=== PATIENT | male | born 1965 | race Caucasian/White ===

== ENCOUNTER → 2024-12-23 | Outpatient (REF) | payer BC ==
[~2024-12-23] MED LIST: CLARITIN PO; LOTENSIN PO; NORCO PO; ZOCOR PO
== END ==
LOC: WCC 12:16
PROVIDERS: ATTEND Podiatrist Foot & Ankle Surgery
DX: L97.323 Non-pressure chronic ulcer of left ankle with necrosis of muscle (principal); R60.0 Localized edema

== ENCOUNTER → 2024-12-27 | Outpatient (REF) | payer BC | LOC: WCC 15:19 | PROVIDERS: ATTEND Podiatrist Foot & Ankle Surgery | DX: L97.323 Non-pressure chronic ulcer of left ankle with necrosis of muscle (principal); R60.0 Localized edema ==

== ENCOUNTER → 2024-12-30 | Outpatient (REF) | payer BC | LOC: WCC 13:15 | PROVIDERS: ATTEND Podiatrist Foot & Ankle Surgery | DX: R60.0 Localized edema (principal) ==

== ENCOUNTER → 2025-01-03 | Outpatient (REF) | payer BC ==
[~2025-01-03] MED LIST changes: +COLLAGENASE OINTMENT 30 GM TUBE ONE; +MINERAL OIL/PETROLAT/GLYCERI 6OZ BTL ONE
== END ==
LOC: WCC 11:21
PROVIDERS: ATTEND Podiatrist Foot & Ankle Surgery
DX: L97.323 Non-pressure chronic ulcer of left ankle with necrosis of muscle (principal)
CPT/HCPCS: 87071; 87075; 87186; 87205

== ENCOUNTER → 2025-01-06 | Outpatient (REF) | payer BC ==
[~2025-01-06] MED LIST changes: -COLLAGENASE OINTMENT 30 GM TUBE ONE; -MINERAL OIL/PETROLAT/GLYCERI 6OZ BTL ONE
[2025-01-06 15:21] LABS: BASOPHILS # (AUTO) 0.1 (0.0-0.1); BASOPHILS % 0.7 % (0.0-1.0); EOSINOPHILS # (AUTO) 0.1 (0.0-0.4); EOSINOPHILS % 1.9 % (0.0-6.0); HEMATOCRIT 33.5 % (38.2-49.6); HEMOGLOBIN 10.4 g/dL (14.0-18.0); LYMPHOCYTES # (AUTO) 1.7 (1.0-3.2); LYMPHOCYTES % 24.1 % (18.0-39.1); MEAN CORPUSCULAR HEMOGLOBIN 27.6 pg (28-32); MEAN CORPUSCULAR VOLUME 88.9 fL (81-99); MONOCYTES # (AUTO) 0.5 (0.2-0.8); MONOCYTES % 6.4 % (4.4-11.3); NEUTROPHILS # (AUTO) 4.8 (2.1-6.9); NEUTROPHILS % 66.6 % (38.7-80.0); PLATELET COUNT 238 x10e3/uL (140-360); RED BLOOD COUNT 3.77 x10e6/uL (4.3-5.7); RED CELL DISTRIBUTION WIDTH 12.8 % (11.7-14.4); WHITE BLOOD COUNT 7.18 x10e3/uL (4.8-10.8)
[2025-01-06 15:40] LABS: ALBUMIN 3.7 g/dL (3.5-5.0); ALBUMIN/GLOBULIN RATIO 1.2 (0.8-2.0); ANION GAP 15.2 mmol/L (8-16); BILIRUBIN,TOTAL 0.4 mg/dL (0.2-1.2); CALCIUM 9.5 mg/dL (8.4-10.2); CREATININE, SERUM 0.87 mg/dL (0.72-1.25); POTASSIUM 4.2 mmol/L (3.5-5.1); TOTAL PROTEIN 6.9 g/dL (6.5-8.1)
== END ==
LOC: WCC 14:23
PROVIDERS: ATTEND Podiatrist Foot & Ankle Surgery
DX: L97.323 Non-pressure chronic ulcer of left ankle with necrosis of muscle (principal); R60.0 Localized edema
CPT/HCPCS: 36415; 80053; 84134; 85025

== ENCOUNTER → 2025-01-08 | Outpatient (REF) | payer BC ==
[~2025-01-08] MED LIST changes: +COLLAGENASE OINTMENT 30 GM TUBE ONE; +MINERAL OIL/PETROLAT/GLYCERI 6OZ BTL ONE
== END ==
LOC: WCC 09:08
PROVIDERS: ATTEND Podiatrist Foot & Ankle Surgery
DX: L97.323 Non-pressure chronic ulcer of left ankle with necrosis of muscle (principal); R60.0 Localized edema

== ENCOUNTER → 2025-01-10 | Outpatient (REF) | payer BC ==
[~2025-01-10] MED LIST changes: -COLLAGENASE OINTMENT 30 GM TUBE ONE; -MINERAL OIL/PETROLAT/GLYCERI 6OZ BTL ONE
== END ==
LOC: WCC 14:19
PROVIDERS: ATTEND Podiatrist Foot & Ankle Surgery
DX: L97.323 Non-pressure chronic ulcer of left ankle with necrosis of muscle (principal); R60.0 Localized edema

== ENCOUNTER → 2025-01-17 | Outpatient (REF) | payer BC ==
[~2025-01-17] MED LIST changes: +COLLAGENASE OINTMENT 30 GM TUBE ONE
== END ==
LOC: WCC 16:13
PROVIDERS: ATTEND Podiatrist Foot & Ankle Surgery
DX: L97.323 Non-pressure chronic ulcer of left ankle with necrosis of muscle (principal); R60.0 Localized edema

== ENCOUNTER → 2025-01-20 | Outpatient (REF) | payer BC | LOC: WCC 15:28 | PROVIDERS: ATTEND Podiatrist Foot & Ankle Surgery | DX: L97.323 Non-pressure chronic ulcer of left ankle with necrosis of muscle (principal); R60.0 Localized edema; B96.89 Other specified bacterial agents as the cause of diseases classified elsewhere ==